=== PATIENT | female | born 1995 | race Caucasian/White ===

== ENCOUNTER 2021-07-01 05:29 | Inpatient (IN) | payer BC, MEDICAID ==
[2021-07-01] MEDS ORDERED: Lactated Ringers 1,000 ML IV SCH (06:30)
[2021-07-01] MEDS ORDERED: Oxytocin 10 Units/1 ML SDV ONE ×2 (06:46→07:03)
[2021-07-01] MEDS ORDERED: cefOXitin 1 GM Vial ONE (06:46)
[2021-07-01] MEDS ORDERED: Lactated Ringers 1,000 ML ONE (07:03)
[2021-07-01] MEDS ORDERED: ePHEDrine 50 MG/ML SDV ONE (07:03)
[2021-07-01] MEDS ORDERED: Ondansetron 4 MG/2 ML SDV ONE (07:03)
[2021-07-01] MEDS ORDERED: cefOXitin 2 GM Vial ONE (07:03)
[2021-07-01] MEDS ORDERED: Sodium Chloride 0.9% 30 ML ONE (07:03)
[2021-07-01] MEDS ORDERED: Phenylephrine 1% 10 MG/ML SDV ONE (07:03)
[2021-07-01] MEDS ORDERED: HYDROmorphone/Normal Saline 15 MG/30 ML PCA IV PRN (09:12)
[2021-07-01] MEDS ORDERED: Naloxone 0.4 MG/ML SDV IVPUSH PRN (09:12)
[2021-07-01] MEDS ORDERED: hydrOXYzine HCL 100 MG/2 ML SDV IM PRN (09:24)
[2021-07-01] MEDS ORDERED: Ondansetron 4 MG/2 ML SDV IVPUSH PRN (09:24)
[2021-07-01] MEDS ORDERED: Dextrose 5%-Lactated Ringers 1,000 ML IV SCH (09:30)
[2021-07-01] MEDS: Acetaminophen 500 MG Tab PO SCH ×3 (10:02→21:11)
[2021-07-01] MEDS: Ibuprofen 600 MG Tab PO SCH ×3 (10:39→18:01)
[2021-07-01] MEDS: cefOXitin 2 GM in Sodium Chloride 0.9% 50 ML IV SCH ×2 (14:52→20:21)
[2021-07-02] MEDS: Ibuprofen 600 MG Tab PO SCH ×4 (00:34→17:46)
[2021-07-02] MEDS: cefOXitin 2 GM in Sodium Chloride 0.9% 50 ML IV SCH ×4 (01:26→20:04)
[2021-07-02] MEDS: Acetaminophen 500 MG Tab PO SCH ×4 (03:17→22:54)
[2021-07-02] MEDS ORDERED: HYDROmorphone 2 MG Tab PO PRN (07:51)
[2021-07-02] MEDS ORDERED: Dextrose 5%-Lactated Ringers 1,000 ML IV SCH (08:00)
[2021-07-02] MEDS: Docusate Sodium 100 MG Cap PO SCH ×2 (08:35→20:46)
[2021-07-02] MEDS: Bisacodyl 5 MG Tab PO SCH ×2 (08:35→20:46)
[2021-07-03] MEDS: Ibuprofen 600 MG Tab PO SCH ×3 (00:28→13:32)
[2021-07-03] MEDS: Acetaminophen 500 MG Tab PO SCH ×2 (04:15→09:12)
[2021-07-03] MEDS: cefOXitin 2 GM in Sodium Chloride 0.9% 50 ML IV SCH ×2 (04:15→09:10)
[2021-07-03] MEDS: Docusate Sodium 100 MG Cap PO SCH (09:10)
[2021-07-03] MEDS: Bisacodyl 5 MG Tab PO SCH (09:10)
[2021-07-03 11:12] VITALS: BP 103/61; PULSE 96
[2021-07-03] MEDS ORDERED: Lanolin 100% Cream 40 GM Tube TOP PRN (12:12)
--- NOTE | 2021-07-04 12:49 | DISCH ---
FINAL DIAGNOSES: 1. Term with history of previous section. 2. History of diet-controlled gestational diabetes. OPERATIVE PROCEDURE: A repeat section was done on 07/01. SUMMARY: This is a 25-year-old presenting with elective repeat section. On the date of admission, the patient underwent a section with a low transverse uterine incision. The patient delivered a viable male, and both of them have done well postoperatively. She will be discharged home at this point on regular diet. She has already moved the bowels. Medications include only Motrin 600 mg p.o. q.i.d. p.r.n. pain #40 and Tylenol 1000 mg p.o. q.6 hours p.r.n. pain. She is instructed she can finish all of her vitamins and other vitamins as well and follow up with Reanna Quinones at [facility] on 07/12/2021. /[id number]
--- NOTE | 2021-07-04 12:58 | PN ---
DATE OF SERVICE: 07/02/2021 The patient is postop day one from a repeat section. Both her and the baby appear to be doing well. We will back down the IV rate, will go over to oral pain medication exclusively and regular diet, and begin some bowel stimulations. She may be ready for home tomorrow . Henri Keller MD /[id number]
--- NOTE | 2021-07-14 23:52 | OR ---
DATE OF PROCEDURE: 07/01/2021 SURGEON: Henri Keller MD PREOPERATIVE DIAGNOSIS: Term with history of previous section. POSTOPERATIVE DIAGNOSIS: Term with history of previous section. PROCEDURE: Repeat section ([id number]). ANESTHESIA: Spinal. CAN LINE OPERATOR: Debby Lai CNM INDICATION FOR PROCEDURE: This is a 25-year-old female presenting with term with history of previous section and desire to proceed with repeat section. Potential risks including bleeding, infection, injury to mother or baby were discussed, and the patient wishes to proceed. DETAILS OF PROCEDURE: The patient was taken to the operating room. After spinal anesthetic was placed, she was positioned with a roll underneath the right hip. A Cordova catheter was inserted and the abdomen was prepped and draped. Previous Pfannenstiel incision was then reused and carried down through the skin and subcutaneous tissue, and through the anterior rectus sheath, subaponeurotic flaps were then raised superiorly and inferiorly and the midline peritoneum divided. Peritoneal reflection of the bladder on the uterus was then divided and reflected downward. A transverse lower uterine segment incision was made and a viable male was delivered through vertex presentation. Cord was clamped and cut. Routine care given off the field per nurse ui architect, Debby Lai. Placenta and membranes were then delivered without difficulty while patient received IV intrauterine Pitocin and IV cefoxitin. Good uterine contractions were noted, and uterus was closed with 2 layers of 2-0 Vicryl stitch as was the peritoneum reflection of the bladder on the uterus. The midline peritoneum was approximated with #2 Vicryl stitch as was the anterior rectus sheath. Subcutaneous tissue was reapproximated with some 3-0 Vicryl stitch and the skin with a 4-0 Vicryl subcuticular stitch along with surgical glue. The patient and baby taken to the recovery room in satisfactory condition. There were no evident complications. Debby Lai was necessary public relations assistant in this case. Henri Keller MD /[id number]
== END 2021-07-03 13:45 | disposition home or self-care (01) | DRG 788 ==
LOC: JP.SDS 05:29 → JP.MS 07:49
PROVIDERS: ADMIT Surgery; ATTEND Surgery
PROC: 10D00Z1 Extraction of Products of Conception, Low, Open Approach (ICD-10-PCS; principal; 2021-07-01)
DX: O34.211 Maternal care for low transverse scar from previous cesarean delivery (principal); Z87.891 Personal history of nicotine dependence; Z20.822 Contact with and (suspected) exposure to COVID-19; Z37.0 Single live birth; Z3A.38 38 weeks gestation of pregnancy
CPT/HCPCS: 36415; 80048; 80305-QW; 85025; 85027; 86850; 86900; 86901; 88307; 94762; A9270-GY; J0694; J1170; J2370; J2405; J2590; J3410; J7120; U0002

== ENCOUNTER 2024-07-24 08:06 | Day surgery (SDC) | payer OTHER ==
[~2024-07-24 08:06] MED LIST: Midazolam 1 MG/ML 2 ML SDV ONE; Propofol 200 MG/20 ML SDV ONE; fentaNYL 50 MCG/ML SDV ONE
[2024-07-24] MEDS: Sodium Chloride 0.9% 1,000 ML IV SCH (08:34)
[2024-07-24 10:12] VITALS: PULSE 86
[2024-07-24 10:20] VITALS: BP 114/70
== END 2024-07-24 10:44 | disposition home or self-care (01) ==
LOC: JP.SDS 08:06
PROVIDERS: ATTEND Surgery
DX: R05.3 Chronic cough (principal); K22.89 Other specified disease of esophagus; K21.9 Gastro-esophageal reflux disease without esophagitis
CPT/HCPCS: 00731; 43239; 81025; 88305; J2250; J2704; J3010; J7030